=== PATIENT | male | born 1980 | race Caucasian/White ===

== ENCOUNTER 2017-04-25 20:19 | Emergency (ER) | payer SELFPAY ==
[~2017-04-25 20:19] MED LIST: CYCL-36 PO; DICL50 PO; HYDR-3533 PO
[2017-04-25 20:22] VITALS: BP 154/88; PULSE 114; RESP 20; O2SAT 100
[2017-04-25] MEDS ORDERED: SODIUM CHLORIDE 0.9% FLUSH 10 ML FLUSH IVF PRN (20:30)
[2017-04-25] MEDS ORDERED: SODIUM CHLOR 0.9% 1000 ML INJ 1,000 ML IV ONE ×2 (20:30→23:30)
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
[2017-04-25 20:54] LABS: AUTOMATED NEUTROPHIL # 5.7 TH/MM3 (1.8-7.7); BASOPHIL % 0.5 % (0.0-2.0); EOSINOPHIL # 0.3 TH/MM3 (0-0.4); EOSINOPHIL % 3.1 % (0.0-4.0); HEMATOCRIT 40.8 % (39.0-51.0); HEMO FLAGS DIFF FINAL; LYMPH % 29.3 % (9.0-44.0); LYMPHOCYTE # 2.8 TH/MM3 (1.0-4.8); MEAN CELL VOLUME 86.8 FL (80.0-100.0); MEAN CORPUSCULAR HEMOGLOBIN 29.5 PG (27.0-34.0); MONO % 6.6 % (0.0-8.0); NEUT % 60.5 % (16.0-70.0); PLATELET COUNT 239 TH/MM3 (150-450); RED CELL DISTRIBUTION WIDTH 13.2 % (11.6-17.2); WHITE BLOOD COUNT 9.4 TH/MM3 (4.0-11.0)
[2017-04-25 21:00] LABS: POTASSIUM 3.1 MEQ/L (3.5-5.1)
[2017-04-25 21:03] LABS: BICARBONATE 25.7 MEQ/L (21.0-32.0)
[2017-04-25 21:06] LABS: APTT (PATIENT) 28.6 SEC (24.3-30.1)
[2017-04-25] MEDS ORDERED: IOHEXOL 350 MG/ML 10 ML VIAL (for RAD DIAG) IVCONTRAST ONE (21:36)
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
[2017-04-26] MEDS ORDERED: KETOROLAC TROMETHAMINE 60 MG/2 ML (IM) VIAL IVP ONE (02:15)
[2017-04-26 02:32] VITALS: BP 138/88
== END 2017-04-26 02:32 | disposition home or self-care (01) ==
LOC: PHEFT 20:19
DX: S09.90XA Unspecified injury of head, initial encounter (principal); F10.129 Alcohol abuse with intoxication, unspecified; Y90.8 Blood alcohol level of 240 mg/100 ml or more; X58.XXXA Exposure to other specified factors, initial encounter; Z79.899 Other long term (current) drug therapy; F17.200 Nicotine dependence, unspecified, uncomplicated
CPT/HCPCS: 70450; 70486; 71260; 72125; 72128; 72131; 74177; 80048; 80307; 85025; 85610; 85730; 96361; 96374; 99285; J1885; J7030; Q9967